=== PATIENT | female | born 1965 | race Caucasian/White ===

== ENCOUNTER 2017-06-12 09:07 | Emergency (ER) | payer OTHER ==
[2017-06-12 09:16] VITALS: BP 133/82; PULSE 66; RESP 16; TEMP 97.7; O2SAT 96
--- NOTE | 2017-06-12 09:39 | EDPHY ---
H & P Stated Complaint: FB Contraceptive sponge in vagina since last pm Time Seen by Provider: 06/12/17 09:19 - Personal History LMP (Females 10-55): Unknown Current Tetanus Diphtheria and Acellular Pertussis (TDAP): Yes - Medical/Surgical History Hx Asthma: No Hx Chronic Respiratory Disease: No Hx Diabetes: No Hx Cardiac Disease: No Hx Renal Disease: No Hx Cirrhosis: No Hx Alcoholism: No Hx HIV/AIDS: No Hx Splenectomy or Spleen Trauma: No Other PMH: denies Surgery. Depression - Social History Smoking Status: Never smoked Constitutional: Initial Vital Signs Temperature (C) 36.5 C 06/12/17 09:11 Heart Rate 66 06/12/17 09:11 Respiratory Rate 16 06/12/17 09:11 Blood Pressure 133/82 H 06/12/17 09:11 O2 Sat (%) 96 06/12/17 09:11 O2 Delivery Mode Room Air Allergies/Adverse Reactions: amoxicillin Allergy (Verified 06/12/17 09:16) Home Medications: Medication Instructions Recorded [place] 06/12/17 Medical Decision Making ED Course/Re-evaluation: CHIEF COMPLAINT: Foreign body in vagina HISTORY OF PRESENT ILLNESS: 51-year-old female who has a contraceptive sponge stuck in her vagina. She placed it last evening. It has been in place for approximately the 11 or 12 hr. The string flipped around and she is unable to retrieve it. She has no other complaints. REVIEW OF SYSTEMS: A 10 point review of systems was performed and is negative with the exception of the elements mentioned in the history of present illness. PHYSICAL EXAM: HR, BP, O2 Sat, RR. Temp noted General Appearance: Alert, well hydrated, appropriate, and non-toxic appearing. : Speculum exam was performed and the sponge was easily identified. It was removed with the ring for sepsis. The brief vaginal exam is completely unremarkable. Past medical history: Past surgical history: Noncontributory Family history: Noncontributory Social history: , 2 children, does not abuse tobacco drugs or alcohol, employed DIFFERENTIAL DIAGNOSIS: Includes but is not limited to: Vaginal foreign body , vaginal trauma, labial trauma, cervical trauma, AST I MEDICAL DECISION MAKING: Speculum exam was performed with nurse Cici Aguirre in the room. Contraceptive sponge was easily identified. The string had rotated about 180 degrees which is why she could not retrieve it. There is no need for antibiotics since the sponge can be left in for up to 24 hr and it has only been and about half of that. Departure - Departure Disposition: Home, Routine, Self-Care Clinical Impression: Vaginal foreign body Qualifiers: Encounter type: initial encounter Qualified Code(s): T19.2XXA - Foreign body in vulva and vagina, initial encounter Condition: Good Instructions: Vaginal Foreign Body (ED) Referrals: Dewayne Jimenez MD [Primary Care Provider] - As per Instructions
== END 2017-06-12 09:41 | disposition home or self-care (01) ==
LOC: CED 09:07
DX: T19.2XXA Foreign body in vulva and vagina, initial encounter (principal); X58.XXXA Exposure to other specified factors, initial encounter